=== PATIENT | male | born 1945 | race Two or more races ===

== ENCOUNTER 2023-09-21 10:38 | Inpatient (IN) | payer OTHER, MEDICAID ==
[~2023-09-21] VITALS: Ht 177.8 cm; Wt 68.6 kg
[2023-09-21 11:19] LABS: Basophils # (auto) 0 10 ^3/uL (0-0.2); Basophils % (auto) 0.2 % (0.0-2.0); Eosinophils # (auto) 0 10 ^3/uL (0-0.8); Eosinophils % (auto) 0.3 % (0.0-7.0); Hematocrit 39.9 % (41.0-53.0); Hemoglobin 13.3 g/dL (13.5-17.5); Lymphocytes # (auto) 1.2 10 ^3/uL (0.4-5.4); Lymphocytes % (auto) 6.5 % (10.0-50.0); Mean Corpuscular Hemoglobin 29.8 pg (28.0-32.0); Mean Corpuscular Hgb Conc. 33.3 g/dL (32.0-36.0); Mean Corpuscular Volume 89.4 fL (80.0-100.0); Monocytes # (auto) 1.3 10 ^3/uL (0-1.3); Monocytes % (auto) 6.9 % (0.0-12.0); Neutrophils # (auto) 15.9 10 ^3/uL (1.6-8.6); Neutrophils % (auto) 86.1 % (37.0-80.0); Red Blood Cells 4.47 10^6/uL (4.5-5.90); Red Cell Distribution Width 14.8 % (11.8-14.3); White Blood Cell 18.4 10^3/uL (4.4-10.8)
[2023-09-21 11:28] LABS: Chloride 103 mmol/L (98-107); Potassium 3.4 mmol/L (3.5-5.1); Sodium 137 mmol/L (136-145)
[2023-09-21 11:29] LABS: Anion Gap 9 (5-15); Calcium 9.6 mg/dL (8.7-10.4); Carbon Dioxide 25 mmol/L (20-30)
[2023-09-21 11:34] LABS: BUN/Creatinine Ratio 12.7 (10.0-20.0); Blood Urea Nitrogen 36 mg/dL (9-23); Glucose 386 mg/dL (74-106)
[2023-09-21] MEDS: SODIUM CHLORIDE 0.9% 1,000 ML IVB ONE (12:30)
[2023-09-21] MEDS ORDERED: ACETAMINOPHEN 325 MG TAB PO PRN (14:00)
[2023-09-21] MEDS ORDERED: ONDANSETRON HCL 4 MG/2 ML VIAL IV PRN (14:00)
[2023-09-21] MEDS ORDERED: DOCUSATE SOD 100 MG CAP PO PRN (14:00)
[2023-09-21] MEDS ORDERED: HYDROcodone-ACET 5/325MG TAB PO PRN (14:00)
[2023-09-21] MEDS ORDERED: DEXTROSE (50%) 50ML SYRG IV PRN (14:00)
[2023-09-21] MEDS ORDERED: hydrALAZINE HCL 20 MG/ML VL IV PRN (14:00)
[2023-09-21 14:18] LABS: COVID19 ANTIGEN SOFIA FIA NEGATIVE (NEGATIVE)
[2023-09-21 14:19] VITALS: PULSE 101; RESP 22; O2SAT 97
[2023-09-21 14:58] LABS: Urine Bacteria FEW /hpf (None Seen); Urine Blood Negative /uL (Negative); Urine Clarity Turbid (Clear); Urine Color Yellow (Yellow); Urine Hyaline Cast FEW /lpf (0 - 2); Urine Mucus FEW (None Seen); Urine Protein, UAD 2+ (Negative); Urine Specific Gravity 1.023 (1.001-1.035); Urine Urobilinogen Normal (Negative); Urine WBC 10 /hpf (0 - 3); Urine WBC Clumps PRESENT /hpf (None Seen); Urine pH 5.5 (5.0-9.0)
[2023-09-21] MEDS ORDERED: MORPHINE SULFATE INJ 2 MG/ml SYRG IV PRN (15:15)
[2023-09-21] MEDS ORDERED: NITROGLYCERIN 0.4 MG SL TAB SL PRN (15:15)
[2023-09-21] MEDS: cefTRIAXone 1GM/50ML D5W 50 ML IV ONE (15:30)
[2023-09-21] MEDS: SODIUM CHLORIDE 0.9% 1,000 ML IV SCH ×2 (15:31→18:00)
[2023-09-21] MEDS: POTASSIUM CHL 20MEQ/100ML 100 ML IV ONE (16:20)
[2023-09-21] MEDS: ACCU-CHEK COMFORT CURVE STRIP VI SCH (16:27)
[2023-09-21] MEDS: InsuLIN REG 1unit/0.01ml Soln (100units/ml) SC SCH (16:37)
[2023-09-21 19:30] VITALS: PULSE 101; RESP 20; O2SAT 20
[2023-09-21] MEDS: ATORVASTATIN 20 MG TAB PO SCH (22:03)
[2023-09-22] VITALS (10 sets, daily range): BP systolic 104–135; BP diastolic 67–84; PULSE 77–104; RESP 17–22; TEMP 97.9–98.6; O2SAT 94–99
[2023-09-22 07:01] LABS: Basophils # (auto) 0 10 ^3/uL (0-0.2); Basophils % (auto) 0.3 % (0.0-2.0); Eosinophils # (auto) 0.1 10 ^3/uL (0-0.8); Eosinophils % (auto) 0.8 % (0.0-7.0); Hemoglobin 12.9 g/dL (13.5-17.5); Lymphocytes % (auto) 5.6 % (10.0-50.0); Mean Corpuscular Hemoglobin 29.8 pg (28.0-32.0); Mean Corpuscular Volume 90.3 fL (80.0-100.0); Monocytes # (auto) 1.4 10 ^3/uL (0-1.3); Monocytes % (auto) 7.9 % (0.0-12.0); Neutrophils # (auto) 14.9 10 ^3/uL (1.6-8.6); Neutrophils % (auto) 85.4 % (37.0-80.0); Nucleated Red Blood Cells % 0.1 %; Red Blood Cells 4.32 10^6/uL (4.5-5.90); Red Cell Distribution Width 14.8 % (11.8-14.3); White Blood Cell 17.5 10^3/uL (4.4-10.8)
[2023-09-22 07:18] LABS: Alanine Aminotransferase 39 U/L (7-40); Albumin 3.5 g/dL (3.2-4.8); Alkaline Phosphatase 91 U/L (46-116); Anion Gap 9 (5-15); Aspartate Aminotransferase 53 U/L (13-40); BUN/Creatinine Ratio 15.3 (10.0-20.0); Bilirubin, Total 0.6 mg/dL (0.2-1.0); Blood Urea Nitrogen 29 mg/dL (9-23); Calcium 9.2 mg/dL (8.7-10.4); Carbon Dioxide 25 mmol/L (20-30); Chloride 108 mmol/L (98-107); Potassium 3.2 mmol/L (3.5-5.1); Sodium 142 mmol/L (136-145); Total Protein 6.2 g/dL (5.7-8.2)
[2023-09-22 07:24] LABS: Glucose 174 mg/dL (74-106)
[2023-09-22] MEDS: FAMOTIDINE (10MG/ML) 2ML VL IV SCH (11:14)
[2023-09-22] MEDS: CLOPIDOGREL BISULFATE 75 MG TAB PO SCH (11:14)
[2023-09-22] MEDS: cefTRIAXone 1GM/50ML D5W 50 ML IV SCH (11:15)
[2023-09-22] MEDS: POTASSIUM CHLORIDE 40 MEQ, LIDOCAINE 1% (LOCAL ANESTH.) 4 ML in SODIUM CHL 0.9% 250 ML IV ONE (11:15)
[2023-09-22 13:06] LABS: Magnesium 1.9 mg/dL (1.6-2.6)
[2023-09-22 13:08] LABS: Phosphorus 3.1 mg/dL (2.4-5.1)
[2023-09-22] MEDS: PIPERACILLIN-TAZOB 3.375GM 100 ML IV SCH (14:00)
[2023-09-22] MEDS ORDERED: INSULIN LANTUS (GLARGINE) 1 /0.01ml (100units/ml) SC SCH (20:00)
[2023-09-22 20:52] LABS: Creatinine, Urine 118.62 mg/dL (30.0-125.0)
[2023-09-22] MEDS: INSULIN LANTUS (GLARGINE) 1 /0.01ml (100units/ml) SC SCH (20:52)
[2023-09-23] VITALS (9 sets, daily range): BP systolic 109–139; BP diastolic 70–77; PULSE 89–122; RESP 18–21; TEMP 98.1–98.9; O2SAT 96–98
[2023-09-23 07:32] LABS: Basophils # (auto) 0 10 ^3/uL (0-0.2); Basophils % (auto) 0.2 % (0.0-2.0); Eosinophils # (auto) 0.1 10 ^3/uL (0-0.8); Eosinophils % (auto) 0.8 % (0.0-7.0); Hematocrit 38.5 % (41.0-53.0); Hemoglobin 12.9 g/dL (13.5-17.5); Lymphocytes # (auto) 0.9 10 ^3/uL (0.4-5.4); Mean Corpuscular Hemoglobin 29.9 pg (28.0-32.0); Mean Corpuscular Hgb Conc. 33.5 g/dL (32.0-36.0); Mean Corpuscular Volume 89.3 fL (80.0-100.0); Monocytes # (auto) 1.3 10 ^3/uL (0-1.3); Monocytes % (auto) 8.9 % (0.0-12.0); Neutrophils # (auto) 12.1 10 ^3/uL (1.6-8.6); Neutrophils % (auto) 84.1 % (37.0-80.0); Red Blood Cells 4.31 10^6/uL (4.5-5.90); Red Cell Distribution Width 14.6 % (11.8-14.3); White Blood Cell 14.4 10^3/uL (4.4-10.8)
[2023-09-23 07:33] LABS: Chloride 109 mmol/L (98-107); Potassium 3.8 mmol/L (3.5-5.1); Sodium 144 mmol/L (136-145)
[2023-09-23 07:34] LABS: Anion Gap 7 (5-15); Calcium 9.3 mg/dL (8.7-10.4); Carbon Dioxide 28 mmol/L (20-30)
[2023-09-23 07:39] LABS: BUN/Creatinine Ratio 15.2 (10.0-20.0); Blood Urea Nitrogen 22 mg/dL (9-23); Glucose 98 mg/dL (74-106)
[2023-09-23] MEDS: NYSTATIN (MOUTH-THROAT) 500,000 UNITS/5 ML SUSP MT ONE (10:11)
[2023-09-24] VITALS (7 sets, daily range): BP systolic 117–140; BP diastolic 61–80; PULSE 50–97; RESP 16–20; TEMP 97.9–99.1; O2SAT 95–99
[2023-09-24 06:32] LABS: Basophils # (auto) 0.1 10 ^3/uL (0-0.2); Basophils % (auto) 0.3 % (0.0-2.0); Eosinophils # (auto) 0.2 10 ^3/uL (0-0.8); Eosinophils % (auto) 1.2 % (0.0-7.0); Hematocrit 36.7 % (41.0-53.0); Hemoglobin 12.1 g/dL (13.5-17.5); Lymphocytes # (auto) 1.1 10 ^3/uL (0.4-5.4); Lymphocytes % (auto) 7.6 % (10.0-50.0); Mean Corpuscular Hemoglobin 29.2 pg (28.0-32.0); Mean Corpuscular Volume 88.5 fL (80.0-100.0); Monocytes # (auto) 1.4 10 ^3/uL (0-1.3); Monocytes % (auto) 9.5 % (0.0-12.0); Neutrophils # (auto) 11.9 10 ^3/uL (1.6-8.6); Neutrophils % (auto) 81.4 % (37.0-80.0); Nucleated Red Blood Cells % 0.1 %; Red Blood Cells 4.15 10^6/uL (4.5-5.90); Red Cell Distribution Width 14.5 % (11.8-14.3); White Blood Cell 14.6 10^3/uL (4.4-10.8)
[2023-09-24 06:41] LABS: Chloride 105 mmol/L (98-107); Potassium 3.3 mmol/L (3.5-5.1); Sodium 140 mmol/L (136-145)
[2023-09-24 06:42] LABS: Anion Gap 6 (5-15); Calcium 9.3 mg/dL (8.7-10.4); Carbon Dioxide 29 mmol/L (20-30)
[2023-09-24 06:47] LABS: Blood Urea Nitrogen 17 mg/dL (9-23); Glucose 120 mg/dL (74-106)
[2023-09-24] MEDS: POTASSIUM CHL 20 Meq TABLET PO ONE (10:10)
[2023-09-24] MEDS: PIPERACILLIN-TAZOB 3.375GM 100 ML IV SCH (14:00)
[2023-09-24] MEDS: ATORVASTATIN 20 MG TAB PO SCH (21:00)
[2023-09-24] MEDS: INSULIN LANTUS (GLARGINE) 1 /0.01ml (100units/ml) SC SCH (21:19)
[2023-09-25] VITALS (7 sets, daily range): BP systolic 108–148; BP diastolic 76–92; PULSE 90–114; RESP 16–20; TEMP 97.9–98.7; O2SAT 93–100
[2023-09-25 06:41] LABS: Basophils # (auto) 0.1 10 ^3/uL (0-0.2); Basophils % (auto) 0.5 % (0.0-2.0); Eosinophils # (auto) 0.4 10 ^3/uL (0-0.8); Hematocrit 34.6 % (41.0-53.0); Hemoglobin 11.8 g/dL (13.5-17.5); Lymphocytes # (auto) 1.5 10 ^3/uL (0.4-5.4); Lymphocytes % (auto) 11.1 % (10.0-50.0); Mean Corpuscular Hgb Conc. 34.2 g/dL (32.0-36.0); Mean Corpuscular Volume 87.9 fL (80.0-100.0); Monocytes # (auto) 1.1 10 ^3/uL (0-1.3); Monocytes % (auto) 8.2 % (0.0-12.0); Neutrophils # (auto) 10.4 10 ^3/uL (1.6-8.6); Neutrophils % (auto) 77.2 % (37.0-80.0); Nucleated Red Blood Cells % 0.1 %; Red Blood Cells 3.94 10^6/uL (4.5-5.90); Red Cell Distribution Width 14.4 % (11.8-14.3); White Blood Cell 13.5 10^3/uL (4.4-10.8)
[2023-09-25 06:54] LABS: Calcium 9.1 mg/dL (8.7-10.4); Chloride 106 mmol/L (98-107); Potassium 3.1 mmol/L (3.5-5.1); Sodium 137 mmol/L (136-145)
[2023-09-25 06:55] LABS: Anion Gap 4 (5-15); Carbon Dioxide 27 mmol/L (20-30)
[2023-09-25 07:00] LABS: BUN/Creatinine Ratio 12.2 (10.0-20.0); Blood Urea Nitrogen 14 mg/dL (9-23); Glucose 109 mg/dL (74-106)
[2023-09-25 07:01] LABS: Magnesium 1.6 mg/dL (1.6-2.6)
[2023-09-25] MEDS: POTASSIUM CHLORIDE 40 MEQ, LIDOCAINE 1% (LOCAL ANESTH.) 4 ML in SODIUM CHL 0.9% 250 ML IV ONE (09:11)
[2023-09-25 19:38] LABS: COVID19 ANTIGEN SOFIA FIA NEGATIVE (NEGATIVE)
[2023-09-26 01:00] VITALS: BP_SYST 127; BP_SYST 146; BP_DIAS 79; BP_DIAS 80; PULSE 113; PULSE 68; RESP 18; TEMP 97.5; O2SAT 94; O2SAT 97
[2023-09-26 05:00] VITALS: BP 135/84; PULSE 89; RESP 17; O2SAT 95
[2023-09-26 08:47] VITALS: BP 124/75; PULSE 81; RESP 18; TEMP 98; O2SAT 98
[2023-09-26 11:36] VITALS: BP 124/75; PULSE 81; RESP 18; TEMP 98; O2SAT 98
[2023-09-26 12:51] VITALS: BP 122/69; PULSE 74; RESP 17; TEMP 98.4; O2SAT 97
[2023-09-26 16:53] VITALS: BP 118/80; PULSE 55; RESP 19; TEMP 98.6; O2SAT 94
== END 2023-09-26 16:40 | DRG 871 ==
LOC: EDBD 10:38 → ER 10:46 → DOU IN ICU 15:03 → OVERFLOW 20:35 → TELE 22:22 → TELE-WESTW 22:25 → WEST WING 09-24 01:57
PROVIDERS: ADMIT Internal Medicine; ATTEND Internal Medicine
DX: A41.9 Sepsis, unspecified organism (principal); G93.41 Metabolic encephalopathy; J69.0 Pneumonitis due to inhalation of food and vomit; N17.9 Acute kidney failure, unspecified; I69.351 Hemiplegia and hemiparesis following cerebral infarction affecting right dominant side; N39.0 Urinary tract infection, site not specified; I69.354 Hemiplegia and hemiparesis following cerebral infarction affecting left non-dominant side; Z20.822 Contact with and (suspected) exposure to COVID-19; E11.65 Type 2 diabetes mellitus with hyperglycemia; E87.6 Hypokalemia; I10 Essential (primary) hypertension; E86.9 Volume depletion, unspecified; J44.9 Chronic obstructive pulmonary disease, unspecified; E78.5 Hyperlipidemia, unspecified; H74.93 Unspecified disorder of middle ear and mastoid, bilateral; F32.9 Major depressive disorder, single episode, unspecified; Z96.612 Presence of left artificial shoulder joint; E86.0 Dehydration
CPT/HCPCS: 36415; 70450; 70551; 71045; 76775; 80048; 80053; 81001; 82140; 82570; 82962; 83036; 83605; 83735; 84100; 84300; 84484; 85025; 87040; 87081; 87086; 87426; 92610; 93005; 93306; G0378; J1815; J2001; J2543; J3480; J3490